=== PATIENT | male | born 1965 | race Caucasian/White ===

== ENCOUNTER 2017-01-13 02:12 | Emergency (ER) | payer SELFPAY ==
[~2017-01-13] VITALS: Ht 172.7 cm; Wt 98.0 kg
[2017-01-13 02:24] VITALS: BP 158/95
--- NOTE | 2017-01-13 02:59 | PHYS DOC ---
Past Medical History Past Medical History: Anxiety, Diabetes-Type II, Hypertension Additional Past Medical Histor: chronic back pain d/t injury at work and sciatica Past Surgical History: Appendectomy Alcohol Use: Occasionally Drug Use: None Adult General Chief Complaint Chief Complaint: LOWER BACK PAIN OR INJURY [facility] HPI Patient is a 51 year old male presenting to emergency Department for evaluation of 2 complaints. First complaint is that he has left lower back pain status post twisting his torso when walking down the stairs 4 days ago. Patient says he has shooting pain down his left back to his posterior leg. He has seen a chiropractor and was told that he would improve after 10 days however he says that his pain is intense enough that he cannot sleep. Ibuprofen has been helping minimally. He has no weakness numbness tingling or bowel or bladder incontinence. He also has a right mid thoracic cyst that has been present for a long time but now it is red and his primary care physician will not drain it. Review of Systems Review of Systems Constitutional: Denies fever or chills [] Cardiovascular: No additional information not addressed in HPI [] GI: Denies abdominal pain, nausea, vomiting, bloody stools or diarrhea [] : Denies dysuria or hematuria [] Musculoskeletal: + back pain. No joint pain [] Integument: Denies rash. + skin lesions [] Neurologic: Denies headache, focal weakness or sensory changes [] Current Medications Current Medications Current Medications Medications (Trade) Dose Ordered Sig/Tiarra Start Time Stop Time Status Last Admin Dose Admin Diazepam (Valium) 5 mg 1X ONCE 01/13/17 03:00 01/13/17 03:01 DC 01/13/17 02:48 5 MG Ketorolac Tromethamine (Toradol Im) 60 mg 1X ONCE 01/13/17 03:00 01/13/17 03:01 DC 01/13/17 02:48 60 MG Lidocaine/ Epinephrine (Xylocaine 1%-Epi 1:100,000) 20 ml 1X ONCE 01/13/17 03:00 01/13/17 03:01 DC Oxycodone/ Acetaminophen (Percocet 5/325) 2 tab 1X ONCE 01/13/17 03:00 01/13/17 03:01 DC 01/13/17 02:48 2 TAB Allergies Allergies Allergies Coded Allergies Type Severity Reaction Last Updated Verified Penicillins Allergy Intermediate 01/13/17 Yes Physical Exam Physical Exam Constitutional: Well developed, well nourished, no acute distress, non-toxic appearance. [] Cardiovascular:Heart rate regular rhythm, no murmur [] Lungs & Thorax: Bilateral breath sounds clear to auscultation [] Abdomen: Bowel sounds normal, soft, no tenderness, no masses, no pulsatile masses. [] Skin: Left midthoracic approximate 2 x 3 cm cyst that is erythematous. Back: No midline lumbar tenderness however he has left lumbar paraspinal tenderness. Extremities: No tenderness, no cyanosis, no clubbing, ROM intact, no edema. [] Neurologic: Alert and oriented X 3, normal motor function, normal sensory function, no focal deficits noted. [] Current Patient Data Vital Signs Vital Signs Date Time Temp Pulse Resp B/P Pulse Ox O2 Delivery O2 Flow Rate FiO2 01/13/17 02:48 16 Room Air 01/13/17 02:24 97.8 95 158/95 98 97.8 EKG EKG [] Radiology/Procedures Radiology/Procedures Left paraspinal cyst injected with 5 mL of 1% lidocaine with epinephrine and approximately 1.5 cm incision was made into the skin with large amount of thick material along with purulence expressed from the wound and the wound was packed with iodoform gauze. Wound was irrigated. There was no complications. Course & Med Decision Making Course & Med Decision Making No red flag signs or symptoms necessitating emergent MRI so he will be treated supportively with NSAIDs pain relief and PCP follow-up. Sebaceous cyst was infected and a large amount of purulence was expressed however he will likely need general surgery follow-up to get the entire cyst removed. Patient will be discharged in stable condition with PCP in general surgery follow-up. Patient aware and agreeable with plan for discharge and verbalized understanding of the need for short-term follow-up with strict ER return precautions discussed, worsening pain fevers vomiting or other general concerns. Dragon Disclaimer Dragon Disclaimer This electronic medical record was generated, in whole or in part, using a voice recognition dictation system. Departure Departure Impression: Primary Impression: Lumbar strain Additional Impressions: Lumbar radiculopathy, acute Infected cyst of skin Disposition: 01 HOME, SELF-CARE Condition: GOOD Referrals: BEATRIZ ROSSI MD Patient Instructions: Sciatica Additional Instructions: TAKE 400-600MG OF IBUPROFEN EVERY 6 HOURS AND THE PERCOCET FOR BREAKTHROUGH PAIN. THE VALIUM IS FOR SPASM. FOLLOW WITH THE SURGEON FOR YOUR CYST AND YOUR PCP FOR THE BACK PAIN. THANK YOU! Scripts Diazepam (Valium)5 Mg Tablet5 Mg PO TID #14 TAB Prov:JEFFERY BANG DO 01/13/17 Oxycodone/Apap 5-325 (Percocet 5-325 Mg Tablet)1 Each Tablet1 Tab PO PRN Q6HRS PRN PAIN #20 TAB Ref 0 Prov:JEFFERY BANG DO 01/13/17 Problem Qualifiers JEFFERY BANG DO January 13, 2017 02:59
[2017-01-13] MEDS ORDERED: diazePAM 5 MG TABLET PO ONE (03:00)
[2017-01-13] MEDS ORDERED: LIDOCAINE 1%/EPI 1:100,000 20 ML VIAL. INJ ONE (03:00)
[2017-01-13] MEDS ORDERED: oxyCODONE/APAP 5/325 1 TAB TABLET PO ONE (03:00)
[2017-01-13] MEDS ORDERED: KETOROLAC TROMETHAMINE 60 MG/2 ML INJ. IM ONE (03:00)
[2017-01-13] MEDS ORDERED: OXYC-323 PO (03:25)
[2017-01-13] MEDS ORDERED: DIAZ5TAB PO (03:25)
== END 2017-01-13 03:45 | disposition home or self-care (01) ==
LOC: ER 02:12
DX: S39.012A Strain of muscle, fascia and tendon of lower back, initial encounter (principal); L72.8 Other follicular cysts of the skin and subcutaneous tissue; M54.16 Radiculopathy, lumbar region; G89.29 Other chronic pain; I10 Essential (primary) hypertension; E11.9 Type 2 diabetes mellitus without complications; Z90.49 Acquired absence of other specified parts of digestive tract; Z88.0 Allergy status to penicillin; X50.9XXA Other and unspecified overexertion or strenuous movements or postures, initial encounter; Y93.01 Activity, walking, marching and hiking; Y99.8 Other external cause status; Y92.89 Other specified places as the place of occurrence of the external cause
CPT/HCPCS: 10060; 96372; 99283; J1885; J3490